=== PATIENT | female | born 1990 | race Caucasian/White ===

== ENCOUNTER 2021-04-01 20:57 | Inpatient (IN) | payer MEDICAID ==
[~2021-04-01 20:57] MED LIST: ACET1TAB43 PO; CPH250CIP PO; DOCU100C37 PO; FERR325T18 PO; IBUP-1773 PO; Ibuprofen PO; PNV1TABL9 PO
[2021-04-01 21:15] VITALS: BP 123/81
[2021-04-01] MEDS: OXYTOCIN PRE-MIX DRIP 500 ML IV SCH ×2 (21:32→22:15)
--- NOTE | 2021-04-01 21:50 | OB Labor & Delivery Record ---
Vag Delivery Note Vag Delivery Note Date of Delivery: 04/01/21 Preoperative Diagnosis: Mychal Vasquez is a (30 /Para 3/ 2, Gestational Age 37 (wks)with 4 days Postoperative Diagnosis: Same Surgeon: IRON CARDENAS Anesthesia: none Delivery Type: Findings: Viable male , apgars 9/9, weight 6#6 Lacerations: Bilateral periurethral abrasions Intact placenta with 3 vessel cord. [place]ol[place] cord, no body cord or shoulder dystocia Estimated Blood Loss: 300 ml Complications: None Condition: Stable Description of Procedure: The patient is a 30 year old female who presented in active labor at 8 cm with ruptured membranes. She was admitted and informed consent was obtained. Her labor course was remarkable for rapid progress. She progressed to complete dilatation and began to push. She was then set up for delivery. The 's head was delivered atraumatically in the OA position. The shoulders and remainder of the infant's body were then delivered without difficulty. Upon delivery, the head was held below the level of the perineum and the mouth and nares were bulb suctioned. The infant was placed on maternal abdomen, and after a delay, the cord was doubly clamped and cut and the was handed off to the pediatric staff. An intact placenta with 3-vessel cord delivered via Eufemia and there was found to be minimal bleeding.~ Vigorous fundal massage was performed and the fundus was found to be firm. IV oxytocin was given. Examination of the vagina and perineum revealed bilerateral periurethral abrasions not requiring repair. Following the delivery, sponge, instrument and needle counts were correct. Mom and baby were both in stable condition in the labor suite. IRON CARDENAS MD Apr 01, 2021 21:50
--- NOTE | 2021-04-01 21:53 | History & Physical-OB ---
OB - Chief Complaint & HPI Date/Time Date of Admission: Date of Admission: 04/01/21 Date seen by a Provider: Apr 01, 2021 Time Seen by a Provider: 21:25 Chief Complaint/History OB-Reason for Admission/Chief: Onset of Labor Hx : 3 Hx Para: 2 Expected Date of Delivery: Apr 18, 2021 Gestational Age in Weeks: 37 Gestational Age in Days: 4 History of Labs O+, antibody neg, HIV/HepB/RPR NR. GC/chlamydia neg. GBS neg. Allergies and Home Medications Allergies Coded Allergies: Penicillins (Verified Allergy, Mild, 04/02/14) PT IS UNSURE OF REACTION TO DRUG. Patient Home Medication List Home Medication List Reviewed: Yes OB - History Hx of Present Care: Yes Ultrasounds: Normal mid trimester US Obstetrical Complications: None Obstetrical History Hx : 3 Hx Para: 2 Hx # Term Pregnancies: 2 Hx # Pregnancies: 0 Hx Termination: No Hx Multiple Gestation: No Hx Stillbirth: No Hx Complication: No Hx Induced Hypertens: No Hx Maternal Gestational Diabet: No Hx Hemorrhage: No Delivery History Hx Dystocia: No Hx Forceps Assisted Delivery: No Hx Vacuum Extraction Assisted: No Hx Placenta Abnormality: No Hx Distress: No Hx Large For Gestational Age I: No Hx Small for Gestational Age I: No Hx Section: No Hx Vaginal Delivery Post C-Sec: No Hx Blood Disorders: No Adverse Rxn to Tranfusion: No Patient Past Medical History PMHx: Anxiety SurgHx: wisdom teeth Social History/Family History Alcohol Use: Denies Use Smoking Cessation: Never smoker Immunizations Hepatitis A: No Hepatitis B: No Tetanus Booster (TDap): Less than 5yrs RPR/VDRL: Negative GBS Status: Negative HBsAG: Negative OB - Admission Exam Physical Exam HEENT: NCAT Cervical Dilatation: 10cm Effacement: 100% Station: +3 Membranes: Ruptured Amniotic Fluid: Thick Meconium OB - Assessment/Plan/Diagnosis Assessment Admission Dx Active labor Admission Status: Inpatient Order (span 2 midnights) Reason for Inpatient Admission: Labor, delivery and course Plan Plan: Expectant Management IRON CARDENAS MD Apr 01, 2021 21:53
[2021-04-01 22:00] VITALS: BP 122/69
[2021-04-01] MEDS ORDERED: D5 LR IV SOLUTION 1,000 ML IV SCH (22:00)
[2021-04-01] MEDS ORDERED: CATHETER FLUSH 10 ML SYR IV SCH (22:00)
[2021-04-01 22:01] LABS: BASOPHILS % (AUTO) 0 % (0-10); EOSINOPHILS # (AUTO) 0.1 10^3/uL (0.0-0.3); EOSINOPHILS % (AUTO) 1 % (0-10); HEMATOCRIT 37 % (35-52); HEMOGLOBIN 12.7 g/dL (11.5-16.0); LYMPHOCYTES # (AUTO) 2.5 10^3/uL (1.0-4.0); LYMPHOCYTES % (AUTO) 28 % (12-44); MEAN CORPUSCULAR HEMOGLOBIN 30 pg (25-34); MEAN CORPUSCULAR HGB CONC 35 g/dL (32-36); MEAN CORPUSCULAR VOLUME 85 fL (80-99); MEAN PLATELET VOLUME 12.7 fL (9.0-12.2); MONOCYTES # (AUTO) 0.7 10^3/uL (0.0-1.0); MONOCYTES % (AUTO) 7 % (0-12); NEUTROPHILS # (AUTO) 5.8 10^3/uL (1.8-7.8); NEUTROPHILS % (AUTO) 63 % (42-75); PLATELET COUNT 164 10^3/uL (130-400); WHITE BLOOD COUNT 9.1 10^3/uL (4.3-11.0)
[2021-04-01 22:15] VITALS: BP 124/65
[2021-04-01 22:30] VITALS: BP 119/67
[2021-04-01 22:45] VITALS: BP 109/63
[2021-04-01 23:30] VITALS: BP 103/62
[2021-04-02] MEDS ORDERED: BENZOCAINE/MENTHOL (DERMOPLAST) 56 ML CAN TP PRN (00:15)
[2021-04-02] MEDS ORDERED: TETANUS,DIPTH,PERTUSS P/F (BOOSTRIX) 0.5 ML VIAL IM ONE (00:15)
[2021-04-02] MEDS ORDERED: MEASLES,MUMPS,RUBELLA 1 EA INJ SQ ONE (00:15)
[2021-04-02] MEDS ORDERED: WITCH HAZEL(TUCKS) 40 EA JAR TOP PRN (00:15)
[2021-04-02 04:19] VITALS: BP 99/54
[2021-04-02] MEDS: CATHETER FLUSH 10 ML SYR IV SCH ×2 (04:24→06:08)
[2021-04-02 05:57] LABS: BASOPHILS % (AUTO) 1 % (0-10); EOSINOPHILS % (AUTO) 0 % (0-10); HEMATOCRIT 32 % (35-52); HEMOGLOBIN 10.7 g/dL (11.5-16.0); LYMPHOCYTES # (AUTO) 1.6 10^3/uL (1.0-4.0); LYMPHOCYTES % (AUTO) 19 % (12-44); MEAN CORPUSCULAR HEMOGLOBIN 29 pg (25-34); MEAN CORPUSCULAR HGB CONC 33 g/dL (32-36); MEAN CORPUSCULAR VOLUME 88 fL (80-99); MONOCYTES # (AUTO) 0.6 10^3/uL (0.0-1.0); MONOCYTES % (AUTO) 8 % (0-12); NEUTROPHILS # (AUTO) 6.1 10^3/uL (1.8-7.8); NEUTROPHILS % (AUTO) 72 % (42-75); PLATELET COUNT 107 10^3/uL (130-400); WHITE BLOOD COUNT 8.4 10^3/uL (4.3-11.0)
[2021-04-02 08:50] VITALS: BP 118/65
[2021-04-02] MEDS: DOCUSATE SODIUM 100 MG (COLACE) CAP PO SCH ×2 (09:15→20:13)
[2021-04-02] MEDS: FERROUS SULF 325 MG (IRON) TAB PO SCH (09:15)
--- NOTE | 2021-04-02 11:20 | Progress Note ---
Subjective Subjective/Events-last exam Afebrile, feeling well, bleeding minimal. Denies chest pain, shortness of breath or dizziness. Objective Exam Last Set of Vital Signs Vital Signs Date Time Temp Pulse Resp B/P (MAP) Pulse Ox O2 Delivery O2 Flow Rate FiO2 04/02/21 08:50 36.8 59 16 118/65 (82) 99 Room Air Capillary Refill : General: Alert Lungs: Clear to Auscultation, Normal Air Movement Heart: Regular Rate, No Murmurs Psych/Mental Status: Mental Status NL Results/Procedures Lab Laboratory Tests 04/01/21 21:20: White Blood Count 9.1, Red Blood Count 4.31, Hemoglobin 12.7, Hematocrit 37, Mean Corpuscular Volume 85, Mean Corpuscular Hemoglobin 30, Mean Corpuscular H emoglobin Concent 35, Red Cell Distribution Width 12.1, Platelet Count 164, Mean Platelet Volume 12.7H, Immature Granulocyte % (Auto) 1, Neutrophils (%) (Auto) 63, Lymphocytes (%) (Auto) 28, Monocytes (%) (Auto) 7, Eosinophils (%) (Auto) 1, Basophils (%) (Auto) 0, Neutrophils # (Auto) 5.8, Lymphocytes # (Auto) 2.5, Monocytes # (Auto) 0.7, Eosinophils # (Auto) 0.1, Basophils # (Auto) 0.0, Immature Granulocyte # (Auto) 0.1 04/02/21 05:07: White Blood Count 8.4, Red Blood Count 3.65L, Hemoglobin 10.7L, Hematocrit 32L, Mean Corpuscular Volume 88, Mean Corpuscular Hemoglobin 29, Mean Corpuscular Hemoglobin Concent 33, Red Cell Distribution Width 12.2, Platelet Count 107L, Mean Platelet Volume 13.0H, Immature Granulocyte % (Auto) 1, Neutrophils (%) (Auto) 72, Lymphocytes (%) (Auto) 19, Monocytes (%) (Auto) 8, Eosinophils (%) (Auto) 0, Basophils (%) (Auto) 1, Neutrophils # (Auto) 6.1, Lymphocytes # (Auto) 1.6, Monocytes # (Auto) 0.6, Eosinophils # (Auto) 0.0, Basophils # (Auto) 0.0, Immature Granulocyte # (Auto) 0.0, Percent Immature Platelet Fraction 11.2H Assessment/Plan Assessment/Plan (1) Spontaneous vaginal delivery Status: Acute Assessment & Plan: Routine care IRON CARDENAS MD Apr 02, 2021 11:20
[2021-04-02 11:50] VITALS: BP 104/59
[2021-04-02 16:50] VITALS: BP 120/70
[2021-04-02] MEDS: IBUPROFEN 600 MG (MOTRIN) TAB PO PRN (20:13)
[2021-04-02 20:15] VITALS: BP 115/65
[2021-04-03] VITALS: BP 106/52
[2021-04-03] MEDS: CATHETER FLUSH 10 ML SYR IV SCH (02:11)
[2021-04-03 09:30] VITALS: BP 119/59
[2021-04-03] MEDS: DOCUSATE SODIUM 100 MG (COLACE) CAP PO SCH (10:27)
[2021-04-03] MEDS: FERROUS SULF 325 MG (IRON) TAB PO SCH (10:27)
[2021-04-03] MEDS: IBUPROFEN 600 MG (MOTRIN) TAB PO PRN (10:28)
[2021-04-03] MEDS ORDERED: IBUP-844 PO (11:19)
[2021-04-03] MEDS ORDERED: FERR325T24 PO (11:19)
--- NOTE | 2021-04-03 11:21 | Short Stay Summary ---
Discharge Summary Hospital Course Final Diagnosis: s/p at 37wk4d Hospital Course Date of Admission: Apr 01, 2021 at 20:59 Date of Discharge: 04/03/21 Discharge Diagnosis: s/p at 37w4d following YOBANI eladio periurethral lacerations (no repair) Hospital Course: Routine course Labs and Pending Lab Test: Laboratory Tests 04/01/21 21:20: White Blood Count 9.1, Red Blood Count 4.31, Hemoglobin 12.7, Hematocrit 37, Mean Corpuscular Volume 85, Mean Corpuscular Hemoglobin 30, Mean Corpuscular Hemoglobin Concent 35, Red Cell Distribution Width 12.1, Platelet Count 164, Mean Platelet Volume 12.7H, Immature Granulocyte % (Auto) 1, Neutrophils (%) (Auto) 63, Lymphocytes (%) (Auto) 28, Monocytes (%) (Auto) 7, Eosinophils (%) (Auto) 1, Basophils (%) (Auto) 0, Neutrophils # (Auto) 5.8, Lymphocytes # (Auto) 2.5, Monocytes # (Auto) 0.7, Eosinophils # (Auto) 0.1, Basophils # (Auto) 0.0, Immature Granulocyte # (Auto) 0.1, Syphilis Serology Non-Reactive 04/02/21 05:07: White Blood Count 8.4, Red Blood Count 3.65L, Hemoglobin 10.7L, Hematocrit 32L, Mean Corpuscular Volume 88, Mean Corpuscular Hemoglobin 29, Mean Corpuscular Hemoglobin Concent 33, Red Cell Distribution Width 12.2, Platelet Count 107L, M bruce Platelet Volume 13.0H, Immature Granulocyte % (Auto) 1, Neutrophils (%) (Auto) 72, Lymphocytes (%) (Auto) 19, Monocytes (%) (Auto) 8, Eosinophils (%) (Auto) 0, Basophils (%) (Auto) 1, Neutrophils # (Auto) 6.1, Lymphocytes # (Auto) 1.6, Monocytes # (Auto) 0.6, Eosinophils # (Auto) 0.0, Basophils # (Auto) 0.0, Immature Granulocyte # (Auto) 0.0, Percent Immature Platelet Fraction 11.2H Home Meds Active Reported Complete Caplet (Pnv Cmb#21/Iron/Folic Acid) 1 Each Tablet 1 Each PO Assessment/Pt Instructions Follow-up with Dr. Nieves in 6wk Discharge Instructions Discharge Diet: No Restrictions Discharge Physical Examination General Appearance: Alert, Oriented X3, Cooperative Psych/Mental Status: Mood NL Allergies: Coded Allergies: Penicillins (Verified Allergy, Mild, 04/02/14) PT IS UNSURE OF REACTION TO DRUG. Copy Copies To 1: ANA NIEVES MD Discharge Summary Date of Admission Apr 01, 2021 at 20:59 Date of Discharge CARLI GUZMAN DO Apr 03, 2021 11:21
[2021-04-03 13:20] VITALS: BP 119/59
== END 2021-04-03 13:20 | disposition home or self-care (01) | DRG 807 ==
LOC: LDRP 20:57 → WSo 20:57 → LDRP 20:59 → WSo 20:59 → LDRP 23:44
PROVIDERS: ADMIT Family Medicine; ATTEND Family Medicine
PROC: 10E0XZZ Delivery of Products of Conception, External Approach (ICD-10-PCS; principal; 2021-04-01)
DX: O71.82 Other specified trauma to perineum and vulva (principal); Z37.0 Single live birth; Z3A.37 37 weeks gestation of pregnancy
CPT/HCPCS: 36415; 85025; 86780; 86850; 86900; 86901; 99212